=== PATIENT | female | born 1950 | race Caucasian/White ===

== ENCOUNTER → 2016-09-24 | Day surgery (SDC) | payer MEDICARE, BC ==
[2016-09-24] VITALS (9 sets, daily range): BP systolic 98–139; BP diastolic 55–80
[~2016-09-24] VITALS: Ht 157.5 cm; Wt 65.8 kg
[~2016-09-24] MED LIST: ESTRACE1 MG ORAL; Hydromorphone 0.5mg/0.5ml inj IVP PRN; Ketorolac 30mg Inj IV PRN; Lidocaine 1% MPF 10mg/ml 5ml ONE; Norco 5mg/325mg tab ORAL PRN; OMEGA-3100 M1 PO; fentaNYL 100 mcg/2 mL IV PRN
--- NOTE | 2016-09-24 07:44 | Pre-Procedure Note/Attestation ---
Pre-Procedure Note/Attestation Complete Prior to Procedure Planned Procedure: not applicable Procedure Narrative: Colonoscopy, possible biopsy, polypectomy, hemostasis, submucosal injection Indications for Procedure Pre-Operative Diagnosis: cancer screening Attestation I attest that I discussed the nature of the procedure; its benefits; risks and complications; and alternatives (and the risks and benefits of such alternatives ), prior to the procedure, with the patient (or the patient's legal customer development representative). I attest that, if there was a reasonable possibility of needing a blood transfusion, the patient (or the patient's legal customer development representative) was given the [facility] standardized written summary, pursuant to the Harsha Abilio Blood Safety Act ([place] Health and Safety Code # 1645, as amended). I attest that I re-evaluated the patient just prior to the surgery and that there has been no change in the patient's H&P, except as documented below: MATEUS JONAS Sep 24, 2016 07:44
--- NOTE | 2016-09-24 08:36 | Anethesia Preoperative Eval ---
Anesthesia Pre-op PMH/ROS General Date of Evaluation: Sep 24, 2016 Time of Evaluation: 07:00 Anesthesiologist: rahul ASA Score: ASA 2 Mallampati Score Class I : Soft palate, uvula, fauces, pillars visible Class II: Soft palate, uvula, fauces visible Class III: Soft palate, base of uvula visible Class IV: Only hard plate visible Mallampati Classification: Class II Surgeon: Suellen Diagnosis: Cancer Screening Surgical Procedure: Colonoscopy Anesthesia History: none Family History: no anesthesia problems Allergies: Coded Allergies: No Known Allergies (Unverified , 09/24/16) Medications: see eMAR Past Medical History Cardiovascular: Denies: CAD, HTN, RI, arrhythmia, other, valve dz Pulmonary: Denies: COPD, ANGEL LUIS, asthma, other Gastrointestinal/Genitourinary: Denies: CRI, ESRD, GERD, other Neurologic/Psychiatric: Denies: CVA, TIA, dementia, depression/anxiety, other Endocrine: Denies: DM, hypothyroidism, other, steroids HEENT: Denies: TAZLINA (L), TAZLINA (R), cataract (L), cataract (R), glaucoma, other Hematology/Immune: Denies: DVT, anemia, bleeding disorder, other Musculoskeletal/Integumentary: Denies: DDD, DJD, OA, RA, edema, other Anesthesia Pre-op Phys. Exam Physician Exam Last Vital Signs Date Time Temp Pulse Resp B/P Pulse Ox O2 Delivery O2 Flow Rate FiO2 09/24/16 07:48 97.2 61 18 135/80 98 Room Air Constitutional: NAD Neurologic: CN 2-12 intact Cardiovascular: RRR Respiratory: CTA Gastrointestinal: S/NT/ND Airway Exam Mallampati Score: Class II YULISA SHEA M.D. Sep 24, 2016 08:36
--- NOTE | 2016-09-24 08:50 | Immediate Post-Op Evaluation ---
Immediate Post-Op Evalulation Immediate Post-Op Evalulation Procedure: Colonoscopy Date of Evaluation: Sep 24, 2016 Time of Evaluation: 09:00 IV Fluids: 700 Blood Products: 0 Estimated Blood Loss: 0 Urinary Output: 0 Blood Pressure Systolic: 120 Blood Pressure Diastolic: 75 Pulse Rate: 80 Respiratory Rate: 20 O2 Sat by Pulse Oximetry: 99 Temperature (Fahrenheit): 98 Pain Score (1-10): 1 Nausea: No Vomiting: No Complications na Patient Status: awake Hydration Status: adequate Given Within 1 Hr of Incision: YULISA Moran M.D. Sep 24, 2016 08:50
--- NOTE | 2016-09-24 08:52 | 48 Hour Post Anesthesia Eval ---
Post Anesthesia Evaluation Procedure: Colonoscopy Date of Evaluation: Sep 24, 2016 Time of Evaluation: 10:00 Blood Pressure Systolic: 120 0: 80 Pulse Rate: 80 Respiratory Rate: 20 Temperature (Fahrenheit): 98 O2 Sat by Pulse Oximetry: 99 Airway: patent Nausea: No Vomiting: No Pain Intensity: 1 Hydration Status: adequate Cardiopulmonary Status: stable Mental Status/LOC: patient returned to baseline Follow-up Care/Observations: na Post-Anesthesia Complications: na Follow-up care needed: N/A YULISA SHEA M.D. Sep 24, 2016 08:52
--- NOTE | 2016-09-24 08:54 | Endoscopy Procedure Note ---
Endoscopy Procedure Note Procedures Performed: colonoscopy Specimen: yes Pt Tolerated Procedure Well: Yes Estimated Blood Loss: minimal Anesthesiologist: Clay Estes MD Anesthesia: moderate sedation Medication Given: see anesthesia record Implant(s) used?: No 50 yrs or older w/o bx or poly: No 10yrs. F/U not recommended: No MATEUS JONAS Sep 24, 2016 08:54
--- NOTE | 2016-09-24 08:55 | Discharge Instructions ---
Discharge Instructions Discharge Instructions Diet: regular Activity: as tolerated For Congestive Heart Failure Reminder Report to your physician any weight gain of 5 pounds or more in one week. MATEUS JONAS Sep 24, 2016 08:55
--- NOTE | 2016-09-24 11:17 | Operative Note - Dictated ---
DATE OF OPERATION: 09/24/2016 PREPROCEDURE DIAGNOSIS: colon cancer screening. POSTPROCEDURE DIAGNOSES: Sigmoid polyp x2, sigmoid diverticulosis, internal hemorrhoids. PROCEDURES: Colonoscopy with cold forceps biopsy. SURGEON: Daphney Ken M.D. ANESTHESIOLOGIST: Clay Joseph M.D. ANESTHESIA: Propofol sedation. INDICATION FOR PROCEDURE: The patient is a 66-year-old, female, who was sent to my office by her agency service representative, Dr. Morenita Santos for colorectal surgical evaluation for follow up colonoscopy. The patient's last colonoscopy was in 2005, which is negative per the patient. In light of the patient's age, it was determined to proceed with the followup colonoscopy. DESCRIPTION OF PROCEDURE: Upon consent of the patient, the patient was brought to the procedure room, placed in a left lateral decubitus position. Once adequate sedation was started propofol drip, a digital rectal exam was done which showed moderate internal hemorrhoids. An Olympus colonoscope was advanced to the anus and into the rectum. The descending colon, splenic flexure, transverse colon, hepatic flexure, and ascending colon were visualized. The cecum was easily visualized. Ileocecal valve and appendiceal orifice were identified. The patient's prep was good. The colonoscope was slowly withdrawn and there was noted to be two polyps in the sigmoid colon, which were both removed with cold forceps biopsy and sent off the field as separate specimens. The post polypectomy sites were noted to have no active bleeding. Upon reaching the sigmoid colon, there was noted to be scattered sigmoid diverticula, which were not acutely inflamed. Upon reaching the rectum, the colonoscope was retroflexed and noted to be moderate internal hemorrhoids. The scope was straightened, air was evacuated from the rectum, and the colonoscope was removed. The patient was awakened from anesthesia and brought to post anesthesia recovery room in stable condition. There were no complications. IMPRESSION: Sigmoid polyp x2, sigmoid diverticulosis, mild internal hemorrhoids. PLAN: Repeat colonoscopy in five years. Continue high-fiber diet. Yearly follow up. Daphney Ken M.D. DR: JESSICA JOB#: [id number] CC: SAI
== END | disposition home or self-care (01) ==
LOC: GAS 07:06
DX: Z12.11 Encounter for screening for malignant neoplasm of colon (principal); D12.5 Benign neoplasm of sigmoid colon; K57.30 Diverticulosis of large intestine without perforation or abscess without bleeding; K64.8 Other hemorrhoids
CPT/HCPCS: 94003; 94150

== ENCOUNTER 2020-05-14 16:04 | Emergency (ER) | payer MEDICARE, BC ==
[~2020-05-14] VITALS: Ht 157.5 cm; Wt 68.0 kg
[~2020-05-14 16:04] MED LIST changes: -Hydromorphone 0.5mg/0.5ml inj IVP PRN; -Ketorolac 30mg Inj IV PRN; -Lidocaine 1% MPF 10mg/ml 5ml ONE; -Norco 5mg/325mg tab ORAL PRN; -fentaNYL 100 mcg/2 mL IV PRN
[2020-05-14 16:16] VITALS: BP 116/70
[2020-05-14] MEDS ORDERED: Lidocaine 1% Plain 30 ml INJ ONE (16:30)
--- NOTE | 2020-05-14 17:03 | Emergency Room Report ---
History of Present Illness General Chief Complaint: Laceration Source: Patient Present Illness HPI 70-year-old female with history of hypertension currently taking medication and vasovagal syncope here complaining of a laceration on left index finger that occurred 30 minutes prior to arrival. Patient reports that she was using a glass bottle broke in her hand and cut her tip of her finger. Patient immediate ly. Faint and was about to pass out on her friend caught her. Patient reports that she has extensive history of dizzy spells and fainting due to vasovagal issues and has been extensively worked up for. Denies any head injury today. Denies loss of consciousness, nausea vomiting diarrhea. Denies taking any blood thinners. Minimal bleeding noted on left index finger with about a 1 cm superficial laceration medial side of left index finger. Patient has range of motion of the affected side, and is neurovascularly intact. Is up-to-date with tetanus shot. Has not taken medication for symptom relief. Dried blood is noted on left forehead which reports that when she felt faint she touched her forehead with her bleeding finger and does not appear to have any head injury. No cuts noted on the head or scalp. Reports that paramedics came, did EKG on her and cleared her. Patient did not want to go with the paramedics to the hospital and decided to come on her own. Allergies: Coded Allergies: No Known Allergies (Unverified , 09/24/16) COVID-19 Screening Contact w/high risk pt: No Experienced COVID-19 symptoms?: No COVID-19 Testing performed BAG WASHER: No Patient History Past Medical History: see triage record Past Surgical History: none Pertinent Family History: none Last Menstrual Period: na Now: No Immunizations: UTD Reviewed Nursing Documentation: PMH: Agreed; PSxH: Agreed Nursing Documentation-PMH Past Medical History: No History, Except For Hx Cardiac Problems: No Hx Hypertension: Yes Hx Cancer: No Hx Gastrointestinal Problems: No Hx Neurological Problems: No Review of Systems All Other Systems: negative except mentioned in HPI Physical Exam Vital Signs Date Time Temp Pulse Resp B/P (MAP) Pulse Ox O2 Delivery O2 Flow Rate FiO2 05/14/20 16:11 97.5 66 18 116/70 (85) 98 Room Air Sp02 EP Interpretation: reviewed, normal General Appearance: alert, mild distress Head: normocephalic, atraumatic Eyes: bilateral eye normal inspection, bilateral eye PERRL ENT: hearing grossly normal, normal pharynx, no angioedema, normal voice Neck: full range of motion, supple/symm/no masses Respiratory: chest non-tender, lungs clear, normal breath sounds, no rhonchi, no respiratory distress, no retraction, speaking full sentences Cardiovascular #1: regular rate, rhythm, no edema, no murmur Cardiovascular #2: 2+ carotid (R), 2+ carotid (L), 2+ radial (R), 2+ radial (L) Gastrointestinal: normal bowel sounds, non tender, soft, non-distended, no guarding, no rebound Rectal: deferred Genitourinary: no CVA tenderness Musculoskeletal: back normal, no calf tenderness, non-tender Neurologic: alert, motor strength/tone normal, oriented x3, sensory intact, responsive, speech normal Psychiatric: anxious Skin: laceration - Superficial laceration medial side of left index finger with minimal bleeding and partial involvement of the nailbed Lymphatic: no adenopathy Procedures Laceration/Wound Repair Laceration/Wound Repair : Consent: Verbal Wound Location: upper extremity - Left index finger Wound's Depth, Shape: superficial Wound Length (cm): 1 Wound Explored: no foreign body removed Betadine Prep?: Yes Anesthesia: 1% Lidocaine Volume Anesthetic (ccs): 7 Wound Repaired With: sutures Suture Size/Type: 4:0, proline Number of Sutures: 7 Layer Closure?: Yes Sterile Dressing Applied?: Yes Splint Applied?: Yes Type of Splint Applied: Metal Sling Applied?: No Patient Tolerated: Well Complications: None Medical Decision Making PA Attestation All my diagnosis and treatment plans were reviewed ad discussed with my supervising physician Dr. Warren Diagnostic Impression: Primary Impression: Finger laceration ER Course 70-year-old female with history of hypertension currently taking medication and vasovagal syncope here complaining of a laceration on left index finger that occurred 30 minutes prior to arrival. Patient reports that she was using a glass bottle broke in her hand and cut her tip of her finger. Patient immediately. Faint and was about to pass out on her friend caught her. Patient reports that she has extensive history of dizzy spells and fainting due to vasovagal issues and has been extensively worked up for. Denies any head injury today. Denies loss of consciousness, nausea vomiting diarrhea. Denies taking any blood thinners. Minimal bleeding noted on left index finger with about a 1 cm superficial laceration medial side of left index finger. Patient has range of motion of the affected side, and is neurovascularly intact. Is up-to-date with tetanus shot. Has not taken medication for symptom relief. Dried blood is noted on left forehead which reports that when she felt faint she touched her forehead with her bleeding finger and does not appear to have any head injury. No cuts noted on the head or scalp. Reports that paramedics came, did EKG on her and cleared her. Patient did not want to go with the paramedics to the hospital and decided to come on her own. Ddx considered but are not limited to : Superficial laceration, deep laceration, tendon involvement with laceration, laceration with foreign body Vital signs: are WNL, pt. is afebrile H&PE are most consistent with: Finger laceration ORDERS: Hand x-ray to rule out foreign body, Augmentin, Motrin ED INTERVENTIONS: Wound closure and dressed, DISCHARGE: At this time pt. is stable for d/c to home. Will provide printed patient care instructions, and any necessary prescriptions. Care plan and follow up instructions have been discussed with the patient prior to discharge. Sutures to be removed in 7 to 10 days, keep the splint on, if worsening symptoms return to the emergency room. At this time no further evaluation needed, no head CT needed, evaluation of syncope needed as patient reports that has an extensive history of and does not want to be further evaluated for. Other X-Ray Diagnostic Results Other X-Ray Diagnostic Results : X-Ray ordered: Left hand # of Views/Limited Vs Complete: 3 View Indication: Pain EP Interpretation: Yes KOSTAS Xray: Interpretation reviewed, by supervising MD, and agrees with findings. Interpretation: no dislocation, no soft tissue swelling, no fractures, other - No foreign body Impression: No acute disease Electronically Signed by: Coby Velasquez PA-C Last Vital Signs Date Time Temp Pulse Resp B/P (MAP) Pulse Ox O2 Delivery O2 Flow Rate FiO2 05/14/20 16:16 97.5 78 18 116/70 98 Room Air Disposition: HOME, SELF-CARE Condition: Stable Scripts Ibuprofen* (MOTRIN*) 600 Mg Tablet 600 MG ORAL THREE TIMES A DAY, #30 TAB Prov: Coby Juárez 05/14/20 Amoxicillin/Potassium Clav 875-125* (AUGMENTIN 875-125 TABLET*) 1 Each Tablet 1 TAB ORAL TWICE A DAY for 14 Days, TAB Prov: Coby Juárez 05/14/20 Referrals: NON PHYSICIAN (PCP) Patient Instructions: Laceration Care, Adult Additional Instructions: Sutures to be removed and 7 to 10 days, take medication as directed, keep the splint on, if worsening symptoms return to emergency room Coby Juárez May 14, 2020 17:03
[2020-05-14] MEDS ORDERED: AUGMENTIN 875-1 EAC1 ORAL (17:04)
[2020-05-14] MEDS ORDERED: IBUPROFEN600 M1 ORAL (17:04)
[2020-05-14 17:10] VITALS: BP 119/75
--- NOTE | 2020-05-14 18:05 | Diagnostic Imaging Report ---
Indication: Trauma, finger laceration Technique: 3 views left hand Comparison: none Findings: No acute fractures. No dislocations. No radiopaque foreign body. There is some soft tissue gas along the base of the second digit, likely related to stated clinical history of laceration. Impression: Evidence of soft tissue injury, corresponding to stated clinical history. No acute bony trauma or radiopaque foreign body
== END 2020-05-14 17:11 | disposition home or self-care (01) ==
LOC: EMR 16:35
DX: S61.211A Laceration without foreign body of left index finger without damage to nail, initial encounter (principal); I10 Essential (primary) hypertension; R55 Syncope and collapse; W25.XXXA Contact with sharp glass, initial encounter; Y92.9 Unspecified place or not applicable
CPT/HCPCS: 12001; 73130; 99283; J2001